=== PATIENT | male | born 1960 | race Caucasian/White ===

== ENCOUNTER 2018-01-20 17:19 | Emergency (ER) | payer MEDICAID ==
[~2018-01-20] VITALS: Ht 167.6 cm; Wt 45.4 kg
--- NOTE | 2018-01-20 17:19 | NUR ---
PATIENT BIB [facility] TO ER BED 10
[2018-01-20 17:23] VITALS: BP 141/86
[2018-01-20] MEDS ORDERED: DEXT 5% / NACL 0.9% 500 ML IV ONE (17:25)
--- NOTE | 2018-01-20 17:40 | NUR ---
PATIENT BIBA FOR ALOC. PER EMT, PATIENT FOUND IN ALLEY IN [place] ALTERED. PATIENT WAS GIVEN NARCAN AND DEXTROSE EN ROUTE. PATIENT ARRIVED AAOX3. SKIN IS PINK/WARM/DRY; LUNGS CLEAR BL; PACEMAKER APARENT ON CHEST WALL; PT DENIES ANY FEVER, CP AT THIS TIME; PATIENT PALCED ON 2L O2 VIA NASAL CANULA; PATIENT STATES PAIN OF 0/10 AT THIS TIME; VSS; PATIENT POSITIONED FOR COMFORT; HOB ELEVATED; BEDRAILS UP X2; BED DOWN. ER MD MADE AWARE OF PT STATUS.
[2018-01-20 17:57] LABS: BASOPHILS % (AUTO) 0.2 % (0.0-2.0); HEMATOCRIT 34.2 % (36-52); HEMOGLOBIN 11.7 g/dL (12.0-18.0); LYMPHOCYTES # (AUTO) 0.4 K/uL (2.0-11.5); LYMPHOCYTES % (AUTO) 13.1 % (20.5-51.1); MEAN CORPUSCULAR HEMOGLOBIN 32 pg (27-31); MEAN CORPUSCULAR HGB CONC 34 g/dL (33-37); MEAN CORPUSCULAR VOLUME 92.8 fL (80-94); MONOCYTES # (AUTO) 0.1 K/uL (0.8-1.0); MONOCYTES % (AUTO) 2.5 % (1.7-9.3); NEUTROPHILS # (AUTO) 2.6 K/uL (1.8-7.7); NEUTROPHILS % (AUTO) 84.2 % (42.2-75.2); PLATELET COUNT (AUTO) 236 K/uL (140-450); RED BLOOD CELL COUNT(AUTO) 3.69 MIL/uL (4.20-6.10); RED CELL DISTRIBUTION WIDTH 15.3 % (11.6-13.7); WHITE BLOOD COUNT (AUTO) 3.1 K/uL (4.8-10.8)
[2018-01-20 18:05] LABS: BARBITURATE, URINE NEG. ng/ml (NEG <=200); BENZODIAZEPINE, URINE NEG. ng/mL (NEG <=200); CANNABINOID, URINE NEG. ng/mL (NEG <=50); COCAINE, URINE NEG. ng/mL (NEG <=300); OPIATE, URINE POS. ng/mL (NEG <=2000); PHENCYCLIDINE SCREEN,URINE NEG. ng/mL (NEG <=25)
[2018-01-20 18:13] LABS: ALBUMIN 3.2 g/dL (3.4-5.0); ANION GAP 7.9 (8-16); ASPARTATE AMINOTRANSFERASE 81 U/L (15-37); CARBON DIOXIDE 30.4 mmol/L (21-32); CHLORIDE 100 mmol/L (98-107); CREATININE 0.9 mg/dL (0.7-1.3); GFR ARICAN-AMERICAN 113 mL/min (>90); GLUCOSE 94 mg/dL (74-106); SODIUM SERUM 136 mmol/L (136-145); TOTAL BILIRUBIN 1.2 mg/dL (0.0-1.0); UREA NITROGEN, BLOOD 36 mg/dL (7-18)
[2018-01-20 18:14] LABS: ACETAMINOPHEN < 0.5 ug/ml (10-30); POTASSIUM 2.3 mmol/L (3.5-5.1); SALICYLATE < 2.8 mg/dL (2.8-20.0)
--- NOTE | 2018-01-20 18:40 | NUR ---
PT SOILED HIMSELF. CHANGED AND REPOSITIONED IN BED. CLEAN LINEN PROVIDED. NO COMPLAINTS AT THIS TIME. WILL CONTINUE TO MONITOR.
[2018-01-20] MEDS ORDERED: POTASSIUM CHLORIDE 10 MEQ TABER PO ONE (18:50)
--- NOTE | 2018-01-20 19:13 | NUR ---
PT RESTING COMFORTBALY IN BED. NO COMPLAINTS.
--- NOTE | 2018-01-20 19:16 | NUR ---
Pt report given to PETRA GOLDBERG. Transfer of care at this time.
--- NOTE | 2018-01-20 19:17 | NUR ---
REPORT RECIEVED FROM KEYSHAWN LAMBERT AT THIS TIME. PT IN STABLE CONDITION
--- NOTE | 2018-01-20 20:30 | NUR ---
PT RESTING COMFORTABLY IN BED. NO S/S OF DISTRESS NOTED
--- NOTE | 2018-01-20 21:00 | NUR ---
PT OFFERED FOOD AT THIS TIME BUT REFUSED. PT STATES, "LEAVE ME ALONE I JUST WANT TO SLEEP."
--- NOTE | 2018-01-20 21:52 | NUR ---
CALLED TO GIVE REPORT TO CHAUNCEY LAMBERT AT [facility]
--- NOTE | 2018-01-20 21:52 | NUR ---
REPORT GIVEN TO CHAUNCEY LAMBERT AT THIS TIME
[2018-01-20 22:00] VITALS: BP 152/108
--- NOTE | 2018-01-20 22:00 | NUR ---
PT PROVIDED URINAL AT THIS TIME. 200 ML LIGHT, YELLOW URINE EMPTIED.
[2018-01-20] MEDS ORDERED: DEXTROSE 50% 50 ML SYR IVP ONE (22:20)
--- NOTE | 2018-01-20 22:26 | NUR ---
ENCOURAGED PT TO SIT UP AND EAT AT THIS TIME. PT REFUSES BECAUSE THERE IS NO "RIVERA"
--- NOTE | 2018-01-20 22:40 | NUR ---
PT ATE A FEW BITES OF SANDWHICH AT THIS TIME
--- NOTE | 2018-01-20 22:58 | NUR ---
EM[facility] HERE TO TAKE PT TO [facility] AT THIS TIME. REPORT GIVEN, PT IN STABLE CONDITION
--- NOTE | 2018-01-20 23:02 | NUR ---
Patient to be transferred to [facility]. Is being transferred due to CONTINUITY OF CARE. Receiving facility has accepting physician and available space. ER physician has signed transfer form. Patient or responsible libertarian has agreed to transfer and signed form. Patient belongings inventoried and will be sent with patient. Copy of nursing notes, lab reports, EKG, Physicians Orders and X-rays to be sent with patient. Report called to CHAUNCEY LAMBERT at receiving facility. [facility] ambulance service HERE for transfer.
--- NOTE | 2018-01-20 23:02 | NUR ---
Note undone in EDM - 01/20/18 at 2310 by JAMI Patient to be transferred to [facility]. Is being transferred due to [employer] REQUEST. Receiving facility has accepting physician and available space. ER physician has signed transfer form. Patient or responsible alliance party has agreed to transfer and signed form. Patient belongings inventoried and will be sent with patient. Copy of nursing notes, lab reports, EKG, Physicians Orders and X-rays to be sent with patient. Report called to CHAUNCEY LAMBERT at receiving facility. [facility] ambulance service HERE for transfer.
== END 2018-01-20 23:01 | disposition short-term general hospital (02) ==
LOC: MED 17:19
DX: E87.6 Hypokalemia (principal); E11.649 Type 2 diabetes mellitus with hypoglycemia without coma; R41.82 Altered mental status, unspecified; Z95.0 Presence of cardiac pacemaker
CPT/HCPCS: 36415; 80053; 80305; 82948; 85025; 93005; 96365; 96366; 96375; 99285; G0480; G0482